=== PATIENT | female | born 1945 | race Caucasian/White ===

== ENCOUNTER 2018-01-21 18:10 | Emergency (ER) | payer OTHER, MEDICARE ==
[~2018-01-21] VITALS: Ht 160 cm; Wt 77.6 kg
[2018-01-21] MEDS ORDERED: GLUCOSAMINE HC500 MG PO (18:22)
[2018-01-21] MEDS ORDERED: CENTRUM SILVER1 EAC4 PO (18:22)
[2018-01-21] MEDS ORDERED: VITAMINC500 PO (18:22)
[2018-01-21] MEDS ORDERED: AZITHROMYCIN 2250 MG PO (18:23)
[2018-01-21 18:56] LABS: HEMATOCRIT 40.3 % (37.0-47.0); HEMOGLOBIN 13.7 gm/dL (12.0-15.0); MCH 29.8 pg (26.0-34.0); MCHC 33.9 g/dL (28.0-37.0); MCV 87.9 fL (80.0-100.0); PLATELET COUNT 166 thou/uL (150-400); RBC 4.59 mil/uL (4.20-5.00); RDW 13.8 % (10.5-14.5); WBC 6.7 thou/uL (4.0-11.0)
[2018-01-21 19:03] LABS: ANION GAP 8 mmol/L (7-16); BUN 13 mg/dL (7-18); CALCIUM 9.2 mg/dL (8.5-10.1); CHLORIDE 103 mmol/L (98-107); CO2 27 mmol/L (21-32); CREATININE 0.9 mg/dL (0.6-1.0); GLUCOSE 113 mg/dL (74-106); SODIUM 138 mmol/L (136-145)
[2018-01-21 19:12] LABS: TROPONIN-I <0.06 ng/mL (<0.06)
[2018-01-21 19:19] LABS: ABSOLUTE NEUTROPHILS 4.4 thou/uL (1.4-8.2)
[2018-01-21] MEDS ORDERED: VENTOLIN HFA 1818 GM INH (20:52)
[2018-01-21] MEDS ORDERED: TESSALON PERLE100 MG PO (20:52)
[2018-01-21] MEDS ORDERED: AUGMENTIN 875-1 EACH PO (20:52)
[2018-01-21 21:36] VITALS: BP 122/63
== END 2018-01-21 21:38 | disposition home or self-care (01) ==
LOC: ER 18:10
PROVIDERS: Physician Assistant
DX: J40 Bronchitis, not specified as acute or chronic (principal); J32.9 Chronic sinusitis, unspecified; Z88.6 Allergy status to analgesic agent; Z88.8 Allergy status to other drugs, medicaments and biological substances; Z88.5 Allergy status to narcotic agent

== ENCOUNTER 2018-07-11 04:09 | Emergency (ER) | payer OTHER, MEDICARE ==
[~2018-07-11] VITALS: Ht 160 cm; Wt 77.1 kg
[~2018-07-11 04:09] MED LIST: AUGMENTIN 875-1 EACH PO; AZITHROMYCIN 2250 MG PO; CENTRUM SILVER1 EAC4 PO; GLUCOSAMINE HC500 MG PO; TESSALON PERLE100 MG PO; VENTOLIN HFA 1818 GM INH; VITAMINC500 PO
[2018-07-11 04:42] LABS: HEMATOCRIT 38.4 % (37.0-47.0); MCH 29.1 pg (26.0-34.0); MCHC 33.8 g/dL (28.0-37.0); MCV 86.1 fL (80.0-100.0); PLATELET COUNT 162 thou/uL (150-400); RBC 4.47 mil/uL (4.20-5.00); RDW 13.6 % (10.5-14.5); WBC 3.6 thou/uL (4.0-11.0)
[2018-07-11 04:52] LABS: ANION GAP 8 mmol/L (7-16); BUN 14 mg/dL (7-18); CALCIUM 9.1 mg/dL (8.5-10.1); CHLORIDE 103 mmol/L (98-107); CO2 25 mmol/L (21-32); CREATININE 0.9 mg/dL (0.6-1.0); GLUCOSE 107 mg/dL (74-106); POTASSIUM 3.6 mmol/L (3.5-5.1); SODIUM 136 mmol/L (136-145)
[2018-07-11 05:00] LABS: TROPONIN-I <0.06 ng/mL (<0.06)
[2018-07-11] MEDS ORDERED: AMOXICILLIN 50500 M1 PO (05:27)
[2018-07-11 05:33] VITALS: BP 112/55
[2018-07-11 06:11] LABS: ABSOLUTE NEUTROPHILS 2.1 thou/uL (1.4-8.2); LARGE PLATELETS FEW; PLATELET ESTIMATE NORMAL
== END 2018-07-11 05:34 | disposition home or self-care (01) ==
LOC: ER 04:09
PROVIDERS: Student in an Organized Health Care Education/Training Program
DX: J40 Bronchitis, not specified as acute or chronic (principal); Z88.5 Allergy status to narcotic agent; Z88.8 Allergy status to other drugs, medicaments and biological substances

== ENCOUNTER → 2018-07-16 | Outpatient (CLI) | payer OTHER, MEDICARE ==
[~2018-07-16] MED LIST changes: +AMOXICILLIN 50500 M1 PO
== END ==
LOC: CAT 12:33
DX: J84.10 Pulmonary fibrosis, unspecified (principal); R91.1 Solitary pulmonary nodule; M19.012 Primary osteoarthritis, left shoulder; M47.814 Spondylosis without myelopathy or radiculopathy, thoracic region

== ENCOUNTER 2018-08-12 11:19 | Inpatient (IN) | payer OTHER, MEDICARE ==
[~2018-08-12] VITALS: Ht 160 cm; Wt 78.0 kg
[2018-11-02 13:15] LABS: URINE BILIRUBIN NEGATIVE (Negative); URINE BLOOD TRACE (Negative); URINE CLARITY CLEAR; URINE COLOR YELLOW; URINE GLUCOSE-RANDOM* NEGATIVE (Negative); URINE KETONES NEGATIVE (Negative); URINE NITRITE-REFLEX NEGATIVE (Negative); URINE PROTEIN (DIPSTICK) NEGATIVE (Negative); URINE SPECIFIC GRAVITY >= 1.030 (1.005-1.035); URINE UROBILINOGEN 0.2 E.U./dl (0.2-1.0)
[2018-11-02 13:16] LABS: HEMATOCRIT 40.4 % (37.0-47.0); HEMOGLOBIN 13.4 gm/dL (12.0-15.0); MCH 29.4 pg (26.0-34.0); MCHC 33.2 g/dL (28.0-37.0); MCV 88.7 fL (80.0-100.0); RBC 4.56 mil/uL (4.20-5.00); WBC 5.6 thou/uL (4.0-11.0)
[2018-11-02 13:19] LABS: URINE LEUKOCYTES-REFLEX 2+ (Negative)
[2018-11-02 13:26] LABS: SQUAMOUS >10 Many /LPF (0-3)
[2018-11-02 13:27] LABS: BACTERIA-REFLEX 1-9 Few /HPF (None Seen); CASTS None Seen /LPF (None Seen); CRYSTALS None Seen /LPF (None Seen); MUCUS 4-6 Moderate strn/LPF (None Seen); URINE RBC 0-2 Rare /HPF (0-2); URINE WBC-REFLEX 6-15 Few /HPF (0-5)
[2018-11-02 13:30] LABS: CALCIUM 9.5 mg/dL (8.5-10.1); CREATININE 0.8 mg/dL (0.6-1.0)
[2018-11-02 13:31] LABS: PROTIME 9.7 Seconds (9.3-11.4)
--- NOTE | 2018-11-03 08:37 | EKG ---
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
[2018-11-11 06:38] VITALS: BP 121/59
[2018-11-11 14:34] VITALS: BP 112/55
[2018-11-11 16:27] VITALS: BP 121/60
--- NOTE | 2018-11-11 18:10 | NUR ---
Pt came to unit from PACU approx 1200. Pt alert and oriented x4. Immobilizer and polar pack on right shoulder. Pain controlled. Pt able to void SBA to the toilet. Tolerating clear liquids. IVF infusing. Admission completed. SCD's in place. Pt heart rate is margaux. Provider aware. Pt has been margaux before surgery as well as her baseline. Call light within reach. Will continue to monitor.
[2018-11-11 19:22] VITALS: BP 112/61
[2018-11-12 04:03] VITALS: BP 108/59
[2018-11-12 05:00] LABS: HEMOGLOBIN 11.1 gm/dL (12.0-15.0)
[2018-11-12 05:11] LABS: POTASSIUM 4.3 mmol/L (3.5-5.1)
--- NOTE | 2018-11-12 06:01 | NUR ---
PT ABSOLUTELY REFUSES OXYCODONE, HAS TO RETURN PILL TO THE PYXIS. ALSO SHE DOES NOT WANT MORPHINE, WILL JUST DO TRAMADOL FOR PAIN.
[2018-11-12 07:37] VITALS: BP 107/56
--- NOTE | 2018-11-12 13:23 | NUR ---
INITIAL ASSESSMENT: Pt evaluated for d/c planning needs. Reviewed chart and spoke with nurse and pt. Pt is alert and oriented. Pt lives alone and was independent with ADL's prior to admission to the hospital. Pt uses no DME and has not had home health in the past. Received telephone call from Zuleyka at [facility]. She had received orders prior to surgery from surgeon and is requesting H&P. Pt also wants quad cane. Asked conservation planner to make arrangements for delivery of quad cane. Faxed requested paperwork to [facility]. Patient choice letter signed and is on chart. No other needs indicated.
[2018-11-12 13:25] VITALS: BP 107/56
[2018-11-12 13:46] VITALS: BP 107/56
--- NOTE | 2018-11-12 14:06 | NUR ---
Assumed care of pt at 0700. Pt a&ox4. Pain controlled with prn pain meds. Immobilizer and polar pack in place. SBA to the toilet. Cane ordered for pt. Going home with home health.
--- NOTE | 2018-11-18 09:47 | O ---
[facility] [place] [address] OPERATIVE REPORT Name: NADEEN BECERRA Room #: 417-I [facility] IN M.R.#: [id number] Admission: 11/11/18 Attend Phys: Jd Perez Discharge: 11/12/18 Date of : 47 Report #: [id number] THIS REPORT FOR: //name// CC: Jd Lenz DATE OF SERVICE: 11/11/2018 PREOPERATIVE DIAGNOSES: Right shoulder pain, rotator cuff tear arthropathy with biceps tendinopathy. POSTOPERATIVE DIAGNOSES: Right shoulder pain, rotator cuff tear arthropathy with biceps tendinopathy. PROCEDURE PERFORMED: Right reverse total shoulder arthroplasty with open biceps tenodesis. SURGEON: Jd Hoffmann M.D. FLIGHT INSPECTOR: Norma Baeza PA-C. ANESTHESIA: General with preoperative ultrasound-guided interscalene block. FLUIDS: 700 mL crystalloid. ESTIMATED BLOOD LOSS: Approximately 50 mL. IMPLANTS UTILIZED: [employer] Unite size 12 SAUNDERS coated porous stem with size 12 proximal body, 38+2 eccentric Delta Xtend glenosphere with a +6 polyethylene liner standard metaglene. DESCRIPTION OF PROCEDURE: After proper identification of the patient and operative site in preoperative holding area, the operative site was signed by myself. Prophylactic antibiotics given. The patient elected to receive a block after reviewing the risks, benefits, alternatives and potential complications with Anesthesia. After a satisfactory block, the patient was brought back to the operative suite after induction of satisfactory general anesthesia, the patient was carefully positioned in the beach chair. Head of bed was elevated approximately 40 degrees. Right shoulder was sterilely prepped and draped in the usual manner. Final skin draping was with Ioban. A Roseonly limb positioning system was utilized throughout the entire procedure. Anterior deltopectoral approach was planned. Skin was incised sharply. Full thickness skin flaps were developed. Deltopectoral interval was identified. Cephalic vein was retracted laterally. Subdeltoid adhesions were carefully released bluntly. A Inocente deltoid retractor was used to retract the soft tissues. At this point, a massive rotator cuff tear was noted. Superior migration of the [facility] [address] [place] [address] OPERATIVE REPORT Name: NADEEN BECERRA Room #: 417-I [facility] IN .R.#: [id number] Admission: 11/11/18 Attend Phys: Jd Perez Discharge: 11/12/18 Date of : 47 Report #: [id number] humeral head was present. Portion of the subscapularis was still intact inferiorly and the anterior circumflex vessels were identified, ligated and cauterized. Long head of the biceps tendon was tenodesed to the undersurface of the pectoralis major. At this point, the humeral head was delivered. Oscillating saw was used to flatten the superior aspect of the humeral head. The canal was then reamed by hand up to a size 12 stem with preoperative templating showed 10-12 would probably be the best appropriate fit. Using the appropriate cutting guide and approximately 10 degrees of retroversion, humeral head osteotomy was performed. Any remaining peripheral osteophytes were carefully removed. Protection plate was applied. Shoulder was reduced. Joint was distracted with a lamina manager of digital and the labrum was excised circumferentially. The inferior capsule was released off the glenoid side. Great care was taken to identify and protect the axillary nerve throughout the procedure. A portion of the inferior capsule was still present off the subscapularis and this was carefully released. At this point, a guide pin was placed as inferior as possible with the inclination being watched. This was advanced into the glenoid. Its position was checked by palpation. Glenoid face was reamed. Oleg reamer was utilized and any remaining soft tissue was carefully debrided with a rongeur. Step drill was utilized. A hole was contained and the standard metaglene was carefully impacted into position. Superior and inferior locking screws were placed followed by anterior and posterior nonlocking screws. These were sequentially tightened and then locked. There was good stability of the metaglene. Next a 38+2 eccentric lateralized glenosphere was chosen. It was placed over a guidewire. Screw was reversed until an audible click was felt and heard and then this was tightened, impacted and tightened three additional times until it was felt to be fully seated. Humerus was prepared with an acetabular reamer, reaming the metaphyseal component, a size 1 epiphysis was chosen. Stem was inserted. A +3 and +6 polyethylene liners were utilized and the +6 provided the best overall fit and stability. Trial implants were removed. Joint was thoroughly irrigated with normal saline with antibiotic irrigant. Again this had been performed multiple times throughout the procedure. Two drill holes were placed in the anterior cortex of the humerus with #2 FiberWire being passed. These were passed around the stem, which had been assembled on the back table. This was carefully impacted into position, had good purchase. Good rotational stability. This was then reduced with trial and a +6 polyethylene liner was then impacted into position, it was reduced. The arm was stable throughout a full range of motion. No propensity to dislocate with adduction. No evidence of impingement was noted. It was stable to shuck maneuver as well. At this point, the wound was thoroughly irrigated with normal saline. Subscapularis was repaired of its more remaining inferior portion with 2 modified Savage-Marco Antonio stitches and 1 g of vancomycin powder was utilized, half of this deep, half of this more superficial. 0 Vicryl, 2-0 Vicryl and final skin closure with running Monocryl was performed. This was sealed with Dermabond. Sterile dressing and sling were applied. The patient will utilize a sling for 4 weeks postoperatively. She was awakened and transferred to the recovery room in stable condition. Qualified [address] [address] OPERATIVE REPORT Name: NADEEN BECERRA [place] Room #: 417-I [facility] IN M.R.#: [id number] Admission: 11/11/18 Attend Phys: Jd Perez Discharge: 11/12/18 Date of : 47 Report #: [id number] first aid trainer utilized throughout the entire procedure to aid in patient limb positioning, visualization and retraction of soft tissues, instrument passage, closure and sling application. <ELECTRONICALLY SIGNED> By: Jd Hoffmann MD 11/18/18 0947 0934 0952 Jd Hoffmann MD /nt
== END 2018-11-12 14:00 | disposition home health service (06) | DRG 483 ==
LOC: PRE 11:19 → TBA 11-11 05:21 → 4E 11-11 05:21 → PRE 11-11 06:14 → 4E 11-11 11:24 → PRE 11-11 12:43 → ENTRNSPT 11-12 13:57 → EDTRNSPTSTS 11-12 13:59 → 4E 11-12 14:00
PROVIDERS: Physician Assistant Surgical; ADMIT Orthopaedic Surgery Sports Medicine
PROC: 0RRJ00Z Replacement of Right Shoulder Joint with Reverse Ball and Socket Synthetic Substitute, Open Approach (ICD-10-PCS; principal; 2018-11-11)
PROC: 0LS30ZZ Reposition Right Upper Arm Tendon, Open Approach (ICD-10-PCS; principal; 2018-11-11)
PROC: 3E0T3BZ Introduction of Anesthetic Agent into Peripheral Nerves and Plexi, Percutaneous Approach (ICD-10-PCS; principal; 2018-11-11)
DX: M75.101 Unspecified rotator cuff tear or rupture of right shoulder, not specified as traumatic (principal); M75.21 Bicipital tendinitis, right shoulder; Z88.6 Allergy status to analgesic agent; Z88.8 Allergy status to other drugs, medicaments and biological substances; Z79.899 Other long term (current) drug therapy
CPT/HCPCS: 10783; 50010; 50101; 50172; 50386; 50417; 50697; 50733; 50935; 51320; 52001; 52138; 52256; 53000; 53078; 54118; 55430; 56524; 56525; 56526; 56530; 57095; 57103; 62110; 62900; 65060; 70005

== ENCOUNTER 2019-06-07 05:50 | Day surgery (SDC) | payer OTHER ==
[2019-05-27 09:04] LABS: HEMOGLOBIN 12.6 gm/dL (12.0-15.0); MCH 28.4 pg (26.0-34.0); MCHC 32.4 g/dL (28.0-37.0); MCV 87.7 fL (80.0-100.0); RBC 4.45 mil/uL (4.20-5.00); RDW 15.2 % (10.5-14.5); WBC 8.3 thou/uL (4.0-11.0)
[2019-05-27 09:05] LABS: URINE BILIRUBIN NEGATIVE (Negative); URINE BLOOD TRACE (Negative); URINE CLARITY CLEAR; URINE COLOR YELLOW; URINE GLUCOSE-RANDOM* NEGATIVE (Negative); URINE KETONES NEGATIVE (Negative); URINE LEUKOCYTES-REFLEX TRACE (Negative); URINE NITRITE-REFLEX NEGATIVE (Negative); URINE PROTEIN (DIPSTICK) NEGATIVE (Negative); URINE SPECIFIC GRAVITY >= 1.030 (1.005-1.035); URINE UROBILINOGEN 0.2 E.U./dl (0.2-1.0)
[2019-05-27 09:27] LABS: CREATININE 0.8 mg/dL (0.6-1.0); POTASSIUM 3.8 mmol/L (3.5-5.1)
[2019-05-27 09:28] LABS: PROTIME 9.5 Seconds (9.3-11.4)
[~2019-06-07] VITALS: Ht 162.6 cm; Wt 78.9 kg
[~2019-06-07 05:50] MED LIST changes: +ADVIL200 M3 PO; +FAMOTIDINE40 MG PO; +MELATONIN3 M1 PO; +VITAMIN D310 MC1 PO
[2019-06-07 07:00] VITALS: BP 131/74
[2019-06-07 14:00] VITALS: BP 132/64
[2019-06-07 14:45] VITALS: BP 102/59
[2019-06-07 17:53] VITALS: BP 112/70
--- NOTE | 2019-06-07 18:15 | NUR ---
ASSUMED CARE OF THE PT AT 1400. PT CONTINUES TO HAVE N/V, NAUSEA MEDS GIVEN, SEE EMAR. PTS PAIN CONTROLLED BY PAIN MEDS, SEE EMAR. NC BULB ON PT 3.0 L. PT HAS NOT GOTTEN UP OR VOIDED. IV DRY AND INTACT, LUNGS CLEAR AND PULSES ARE STRONG. MIGUEL DRESSING, POLAR PACK, SCD'S AND IMANI HOSE IN PLACE. FALL PRECAUTIONS IN PLACE, BED IN THE LOWEST POSITION AND CALL LIGHT IS WITHIN REACH. WILL CONTINUE TO MONITOR THE PT.
[2019-06-07 20:15] VITALS: BP 112/57
[2019-06-08] VITALS (7 sets, daily range): BP systolic 95–115; BP diastolic 46–60
[2019-06-08 06:27] LABS: HEMATOCRIT 34.5 % (37.0-47.0); MCH 28.1 pg (26.0-34.0); MCHC 31.9 g/dL (28.0-37.0); MCV 87.9 fL (80.0-100.0); RBC 3.93 mil/uL (4.20-5.00); RDW 14.7 % (10.5-14.5); WBC 14.2 thou/uL (4.0-11.0)
[2019-06-08] MEDS ORDERED: NEURONTIN 300300 M1 PO (09:52)
[2019-06-08] MEDS ORDERED: TRAMADOL 50 MG50 MG PO (09:52)
[2019-06-08] MEDS ORDERED: ASPIR 8181 MG PO (09:52)
--- NOTE | 2019-06-08 10:15 | NUR ---
PT CARE ASSUMED AT 0700. A&Ox4. PATIENT IS PENDING DISCHARGE PT. EVALUATION. PT IS UP WITH GAIT BELT AND A WALKER. MIGUEL DRESSING INTACT. SCD'D, IMANI HOSES, AND POLAR PACK IN PLACE. EDUCATION GIVEN ON POST OP MEDICATION. OBSERVATION PATIENT. VITALS ARE STABLE. PT IS TO FOLLOW UP WITH PCP ABOUT HER RESPIRATIONS WITH POSSIBLE SLEEP STUDY. NO N/V REPORTED. FALL PROTOCOLL IN PLACE. CALL LIGHT IN REACH. WILL CONTINUE TO MONITOR.
--- NOTE | 2019-06-08 13:43 | NUR ---
FAXED REFERRAL TO [facility] SPOKE WITH ALEXSANDER IN INTAKE THEY ARE NOT IN NETWORK WITH PT'S INSURANCE. FAXED REFERRAL TO [facility] SPOKE WITH INTAKE AND THEY RECEIVED REFERRAL AND WILL REVIEW.
--- NOTE | 2019-06-08 15:52 | NUR ---
PT ADMITTED REALTED TO LEFT KNEE TOLAL REPLACEMENT. CM REVIEWED CHART AND SPOKE WITH CARE TEAM. CM MET WITH PT AT BEDSIDE THIS DAY. PT INDICATED SHE LIVES ALONE IN A HOUSE WITH 3 STEPS TO ENTER, 2 FROM GARAGE, AND STAIR LIFT TO BASEMENT. PT NEEDED FWW ISSUED PRIOR TO DC. CM ORDERED ONE THROUGH PROVIDER [employer] AND IT WAS DELIVERED. PT INDICATED THAT SHE WANTED HH SERVICES UPON DC. PT WANTED TO [facility] SHE HAD USED THEM PREVIOUSLY BUT THEY WERE OUT OF NETWORK. REFERRAL SENT TO [facility] BUT THEY CAN'T TAKE. [facility] IS ABLE TO ACCEPT. PT TO DC HOME THIS DAY WITH FWW FROM [facility] [employer] AND HH SERVICES THROUGH [facility]. NO OTHER CM INTERVENTION INDICATED. CASE CLOSED.
--- NOTE | 2019-06-08 16:15 | NUR ---
FAXED REFERRAL TO [facility] SPOKE WITH ERLINDA IN INTAKE SHE RECEIVED REFERRAL AND CAN ACCEPT. FAXED DC ORDERS/SUMMARY RECEIVED CONFIRMATION AND SPOKE WITH ERLINDA SHE WILL NOTIFY PT TIME OF VISITS.
--- NOTE | 2019-06-09 15:24 | O ---
[address] [address] OPERATIVE REPORT Name: NADEEN BECERRA Room #: DEP [facility]..#: [id number] Admission: 06/07/19 Attend Phys: Dieter Ocampo MD Discharge: 06/08/19 Date of : 47 Report #: [id number] THIS REPORT FOR: cc: Lui Betancur MD, Matthew S. MD Abraham,Dieter Carolina MD ~ CC: Lui Ocampo DATE OF SERVICE: 06/07/2019 PREOPERATIVE DIAGNOSES: 1. Right knee osteoarthritis. 2. Retained hardware from previous anterior cruciate ligament reconstruction. POSTOPERATIVE DIAGNOSES: 1. Right knee osteoarthritis. 2. Retained hardware from previous anterior cruciate ligament reconstruction. PROCEDURES: 1. Right total knee arthroplasty using Navio robotic assistance. 2. Hardware removal of the femoral interference screw from previous anterior cruciate ligament reconstruction. SURGEON: Dieter Ocampo MD PATIENT ACCOUNTING REPRESENTATIVE: Daphney Torres PA-C. INDICATIONS FOR PATIENT ACCOUNTING REPRESENTATIVE: Throughout the case, extensive retraction and manipulation of the knee was required. This was afforded to me by my assistant professor of economics. ANESTHESIA: LMA with an adductor canal block. IMPLANTS: Gee and Nephew size 4 Legion cobalt chrome posterior stabilized femur, a size 4 tibia, size 15 constrained polyethylene and size 32 patella. TOURNIQUET TIME: 52 minutes. ESTIMATED BLOOD LOSS: 25 mL. COMPLICATIONS: None. SPECIMENS: None. CONDITION UPON LEAVING THE OPERATING ROOM: Stable. [address] [place] [address] OPERATIVE REPORT Name: NADEEN BECERRA Room #: DEP [facility] [place]..#: [id number] Admission: 06/07/19 Attend Phys: Dieter Ocampo MD Discharge: 06/08/19 Date of : 47 Report #: [id number] INDICATIONS FOR PROCEDURE: The patient is a 74-year-old female with severe right knee osteoarthritis. She had failed conservative measures for this and after discussion with her, she elected for right total knee arthroplasty. DESCRIPTION OF PROCEDURE: Risks, benefits, alternatives, complications were discussed in detail with the patient including but not limited to risk of anesthesia, risk of damage to nerves, arteries, blood vessels, risk for infection, bleeding, risk for continued knee pain and need for reoperation. Informed consent was obtained from the patient. The right knee was appropriately marked in the preoperative holding area. IV Ancef was given for preoperative antibiotics. Adductor canal block was placed by Anesthesia. She was brought to the operating room and placed in supine position on operating room table. LMA anesthesia was induced without complication. Tourniquet was placed on the right thigh. Right lower extremity was prepped and draped in normal sterile fashion. Timeout was performed properly identifying the patient and procedure as well as the instrumentation and implants. All in the operating room were in agreement. Right lower extremity was exsanguinated, tourniquet was inflated. Tourniquet time was 52 minutes. Standard midline approach to knee was made with 10 blade through the skin. Dissection was taken down sharply to the fascia. Deep flaps were developed medially and laterally. Fresh 10-blade was used to make a medial parapatellar arthrotomy and the knee was inspected. There was severe tricompartmental osteoarthritis. ACL and PCL were removed sharply. Reference pins were placed in the femur and the tibia and the knee was then digitally mapped using the Veacon robotic system. Intraoperative plan was made and we sized the size 4 femur with a size 4 tibia and a size 11 spacer. After acceptance of the intraoperative plan, the distal femoral cut was made with a Navio bur. The size 4, 4-in-1 cutting block was pinned in place and the anterior, posterior and chamfer cuts were made. Attention was then turned to the tibia. The remainder of the menisci removed with Bovie cautery. Tibial resection guide was pinned in place using the Navio for placement and tibial resection was made. After this, flexion and extension gaps were checked and found to have good balance in flexion and extension. The tibia was sized and found to be a size 4. Size 4 tibial trial was placed, pinned and punched. A size 4 femoral trial was placed and the box cut was made. This was then trialed with a size 11 up to a size 15 constrained polyethylene then constrained 15 had the best fit and stability both digitally as well as manually. A 9 mm was resected from the posterior surface of the patella and a size 32 patellar trial button was placed. Knee was taken through range of motion, found to be stable, found to have good patellar tracking. Trial components were removed. Bony ends were thoroughly irrigated with normal saline. A final size 4 tibia, size 4 Legion cobalt chrome posterior stabilized femur and a size 32 patella were cemented in place using standard cementation techniques. While the cement cured, a periarticular injection consisting of morphine, ropivacaine, epinephrine and Toradol was placed around the knee joint capsule. After the cement cured, the tourniquet was deflated. Hemostasis was obtained with Bovie cautery. Final size 15 constrained polyethylene was placed. Alonso catalan of [address] [address] OPERATIVE REPORT Name: NADEEN BECERRA [id number] Admission: 06/07/19 Attend Phys: Dieter Ocampo MD Discharge: 06/08/19 Date of : 47 Report #: [id number] vancomycin was placed deep in the joint. Fascia was closed with 0 Vicryl, skin was closed with 2-0 Vicryl, 3-0 Monocryl. Dermabond and a MIGUEL dressing was applied. The patient tolerated this procedure well and went to recovery room under care of anesthesia postoperatively. <ELECTRONICALLY SIGNED> By: Dieter Ocampo MD 06/09/19 1524 1540 1650 Dieter Ocampo MD /nt
== END 2019-06-08 12:12 | disposition home health service (06) ==
LOC: TBA 05:50 → OR 05:50 → 4S 05:50 → OR 06:40 → EDSTATUS 07:51 → PRE 07:52 → 4S 11:15 → PRE 13:47 → OR 14:45 → EDSTATUS 16:31 → OR 16:32 → ENTRNSPT 06-08 12:06 → EDTRNSPTSTS 06-08 12:07 → OR 06-08 12:12
PROVIDERS: Orthopaedic Surgery
DX: M17.11 Unilateral primary osteoarthritis, right knee (principal); M25.561 Pain in right knee; Z47.2 Encounter for removal of internal fixation device; K21.9 Gastro-esophageal reflux disease without esophagitis; Z98.890 Other specified postprocedural states; Z79.899 Other long term (current) drug therapy; Z98.42 Cataract extraction status, left eye; Z98.51 Tubal ligation status; Z90.711 Acquired absence of uterus with remaining cervical stump; Z88.8 Allergy status to other drugs, medicaments and biological substances; Z79.82 Long term (current) use of aspirin
CPT/HCPCS: 10102; 50010; 50101; 50415; 50954; 51130; 51225; 51320; 52001; 52282; 53000; 53078; 53364; 54118; 56527; 56528; 57095; 57103; 57110; 57127; 57180; 62110; 62900; 70005